=== PATIENT | female | born 1970 | race Caucasian/White ===

== ENCOUNTER 2017-12-21 09:09 | Outpatient (CLI) | payer BC | END 2017-12-21 09:10 | disposition home or self-care (01) | LOC: BICMAMMO 09:09 | PROVIDERS: ATTEND Obstetrics & Gynecology | DX: Z12.31 Encounter for screening mammogram for malignant neoplasm of breast (principal); Z80.3 Family history of malignant neoplasm of breast; R92.1 Mammographic calcification found on diagnostic imaging of breast | CPT/HCPCS: 77063; 77067 ==

== ENCOUNTER 2019-01-15 10:38 | Emergency (ER) | payer BC ==
[2019-01-15 11:20] LABS: #Eosinphils 0.2 thou/uL (0.0-0.7); #Lymphocytes 2.6 thou/uL (1.20-3.40); #Monocytes 0.4 thou/uL (0.11-0.59); #Neutrophils 3.7 thou/uL (1.40-6.50); %Basophils 0.6 % (0.0-1.0); %Eosinophils 2.2 % (0.0-10.0); %Lymphocytes 37.5 % (21.0-51.0); %Monocytes 6.2 % (0.0-10.0); %Neutrophils 53.4 % (42.0-75.0); Hemoglobin 15.5 g/dL (12.0-16.0); Mean Corpuscular HGB CONC 33.3 g/dL (32.0-36.0); Mean Corpuscular Hemoglobin 30.6 pg (27.0-31.0); Mean Corpuscular Volume 91.8 fL (78.0-98.0); Platelet Count 212 thou/uL (130-400); Red Blood Cell (RBC) Count 5.06 mill/uL (4.20-5.40)
[2019-01-15 11:31] LABS: BHCG - Serum Negative (NEGATIVE); Pregs Control Background? CLEAR/WHITE (CLR/WHITE); Pregs Control Bar Appear? YES (CONTROL BAR)
[2019-01-15] MEDS ORDERED: Metoclopramide HCl 10 MG/2 ML VIAL ONE (11:39)
[2019-01-15] MEDS ORDERED: diphenhydrAMINE 50 MG/ML VIAL ONE (11:39)
[2019-01-15 11:41] LABS: ALT (SGPT) 32 U/L (8-55); AST (SGOT) 18 U/L (5-34); Albumin 3.9 g/dL (3.5-5.0); Alkaline Phosphatase 107 U/L (40-150); Anion Gap 10 mmol/L (10-20); BUN (Urea Nitrogen) 9 mg/dL (7.0-18.7); Bilirubin, Total 0.5 mg/dL (0.2-1.2); Calc. Creatinine Clearance 0 mL/min (70-130); Calcium 9.1 mg/dL (7.8-10.44); Carbon Dioxide 29 mmol/L (22-29); Chloride 107 mmol/L (98-107); Estimated GFR-MDRD 77; Globulin 2.5 g/dL (2.4-3.5); Glucose 88 mg/dL (70-105); Potassium 4.5 mmol/L (3.5-5.1); Protein, Total 6.4 g/dL (6.0-8.3); Sodium 141 mmol/L (136-145)
--- NOTE | 2019-01-15 12:02 | CT ---
CT BRAIN WITHOUT CONTRAST: History: Headache. Dizziness. FINDINGS: No evidence of infarct, hemorrhage, midline shift, or abnormal extraaxial fluid collections are seen. The ventricular size is normal and the basilar cisterns patent. The bony calvarium is intact. The vi sualized paranasal sinuses and mastoid air cells are well aerated. IMPRESSION: No CT evidence of acute intracranial process. POS: C
[2019-01-15 12:06] LABS: Bilirubin Negative (Negative); Blood, Urine Negative (Negative); Clarity CLEAR (Clear); Glucose, Urine (Dipstick) Negative (Negative); Leukocyte Negative (Negative); Nitrite Negative (Negative); Protein, Urine (Dipstick) Negative (Neg-Trace); Specific Gravity, Urine 1.004 (1.002-1.036); Urobilinogen 0.2 mg/dL (0.2-1.0)
[2019-01-15] MEDS ORDERED: Dexamethasone 4 mg/ml Vial ONE (13:24)
[2019-01-15] MEDS ORDERED: Aspirin Chewable 81 MG TAB ONE (13:24)
--- NOTE | 2019-01-18 15:34 | EKG ---
Test Reason : HEADACHE Blood Pressure : / mmHG Vent. Rate : 078 BPM Atrial Rate : 078 BPM P-R Int : 132 ms QRS Dur : 064 ms QT Int : 364 ms P-R-T Axes : 064 056 065 degrees QTc Int : 414 ms Normal sinus rhythm Normal ECG No ST elevation/MS Confirmed by JAILYN Moise, ALEX ([id number]), food expeditor JASMIN GRIFFIN ([id number]) on 01/18/2019 3:34:13 PM Referred By: Confirmed By:ALEX GLASER M.D.
== END 2019-01-15 14:00 | disposition home or self-care (01) ==
LOC: ERS 10:38
DX: R51 Headache (principal); F32.9 Major depressive disorder, single episode, unspecified; Z79.899 Other long term (current) drug therapy
CPT/HCPCS: 36415; 70450; 80053; 81003; 84484; 84703; 85025; 93005; 96365; 96375; J1100; J1200; J2765

== ENCOUNTER 2019-02-18 16:09 | Emergency (ER) | payer BC ==
[~2019-02-18 16:09] MED LIST: ISOVUE-370 76%-LOCM 1 ML ONE
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
[2019-02-18] MEDS ORDERED: Fentanyl 100 MCG/2 ML VIAL ONE (18:14)
[2019-02-18] MEDS ORDERED: Lorazepam 2 MG/ML VIAL ONE (18:14)
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
== END 2019-02-18 19:06 | disposition home or self-care (01) ==
LOC: ERS 16:09
DX: S22.21XA Fracture of manubrium, initial encounter for closed fracture (principal); S16.1XXA Strain of muscle, fascia and tendon at neck level, initial encounter; G43.909 Migraine, unspecified, not intractable, without status migrainosus; F32.9 Major depressive disorder, single episode, unspecified; Z79.899 Other long term (current) drug therapy; V43.52XA Car driver injured in collision with other type car in traffic accident, initial encounter
CPT/HCPCS: 71260; 72125; 74177; 94760; 96374; 96375; J2060; J3010; Q9966

== ENCOUNTER 2020-08-25 06:56 | Outpatient (CLI) | payer BC ==
--- NOTE | 2020-08-25 07:32 | ULT ---
Hepatic sonogram with duplex evaluation HISTORY: Abnormal liver function tests. FINDINGS: Gallbladder has a normal appearance without stones. Common duct is 0.3 cm. Liver unremarkable without focal mass or intrahepatic biliary dilatation. No free fluid. Spleen is 9.8 cm length. Good color and spectral Doppler flow within the hepatic and splenic arteries. Portal venous flow is t owards the liver. Hepatic venous flow is towards the IVC. IMPRESSION : Normal exam.
== END 2020-08-25 06:57 | disposition home or self-care (01) ==
LOC: BICULT 06:56
PROVIDERS: ATTEND Physician Assistant
DX: R94.5 Abnormal results of liver function studies (principal)
CPT/HCPCS: 76705

== ENCOUNTER 2021-06-15 13:59 | Outpatient (CLI) | payer BC | END 2021-06-15 14:00 | disposition home or self-care (01) | LOC: BICMAMMO 13:59 | PROVIDERS: ATTEND Physician Assistant | DX: Z12.31 Encounter for screening mammogram for malignant neoplasm of breast (principal); Z80.3 Family history of malignant neoplasm of breast | CPT/HCPCS: 77063; 77067 ==

== ENCOUNTER 2023-09-18 06:14 | Day surgery (SDC) | payer BC, OTHER ==
[2023-09-14 14:40] VITALS: BMI 24.2
[~2023-09-18 06:14] MED LIST changes: +EPINEPHrine 0.3 MG in Ophthalmic Irrigation Solution 500 ML IRR SCH; -ISOVUE-370 76%-LOCM 1 ML ONE
[2023-09-18] MEDS ORDERED: Midazolam HCl 2 mg/2 ml Vial ONE (07:07)
[2023-09-18] MEDS ORDERED: Dexmedetomidine 200 MCG/2 ML VIAL ONE (07:22)
[2023-09-18] MEDS ORDERED: Famotidine/PF 20 mg/2ml Vial ONE (07:34)
[2023-09-18] MEDS ORDERED: Cyclopentolate W/ Phenylephrin 5 ML BOT ONE (08:00)
[2023-09-18] MEDS ORDERED: PROPOFOL 20 ML ONE (08:17)
[2023-09-18] MEDS ORDERED: Lidocaine 1% PF 5 ML VIAL ONE ×2 (08:17→08:23)
[2023-09-18] MEDS ORDERED: Indocyanine Green 25 MG/10 ML VIAL ONE (08:23)
[2023-09-18] MEDS ORDERED: CEFAZOLIN 1 GM VIAL ONE (08:23)
[2023-09-18] MEDS ORDERED: Lidocaine 4% PF 5 ML AMP ONE (08:23)
[2023-09-18] MEDS ORDERED: Bupivacaine 0.75% 10 ML VIAL ONE (08:23)
[2023-09-18] MEDS ORDERED: Triamcinolone 40 MG/ML VIAL ONE (08:23)
[2023-09-18] MEDS ORDERED: fentaNYL PF 100 MCG/2 ML SYRINGE ONE (08:46)
== END 2023-09-18 09:37 | disposition home or self-care (01) ==
LOC: SDC 06:14
PROVIDERS: ATTEND Ophthalmology Retina Specialist
PROC: 08T53ZZ Resection of Left Vitreous, Percutaneous Approach (ICD-10-PCS; principal; 2023-09-18)
PROC: 08NF3ZZ Release Left Retina, Percutaneous Approach (ICD-10-PCS; principal; 2023-09-18)
DX: H35.342 Macular cyst, hole, or pseudohole, left eye (principal)
CPT/HCPCS: 67025; J0171; J0690; J2250; J2704; J3301; J3490; S0028

== ENCOUNTER 2023-10-09 08:50 | Outpatient (CLI) | payer BC, OTHER | END 2023-10-09 08:51 | disposition home or self-care (01) | LOC: ULT 08:50 | PROVIDERS: ATTEND Physician Assistant | DX: R74.8 Abnormal levels of other serum enzymes (principal) | CPT/HCPCS: 76705 ==

== ENCOUNTER 2024-11-26 08:54 | Outpatient (CLI) | payer OTHER, BC | END 2024-11-26 08:55 | disposition home or self-care (01) | LOC: BICMAMMO 08:54 | PROVIDERS: ATTEND Physician Assistant | DX: Z12.31 Encounter for screening mammogram for malignant neoplasm of breast (principal); Z80.3 Family history of malignant neoplasm of breast | CPT/HCPCS: 77063; 77067 ==